=== PATIENT | male | born 1940 | race Asian ===

== ENCOUNTER 2024-06-28 10:54 | Emergency (ER) | payer MEDICARE, MEDICAID, SELFPAY ==
[2024-06-28] VITALS (11 sets, daily range): BP systolic 115–190; BP diastolic 63–91; PULSE 65–88; RESP 16–20; TEMP 36.7–36.9; O2SAT 98–100; BMI 35.6
--- NOTE | 2024-06-28 11:48 | PD.EDRME ---
Rapid Medical Screening Exam RME Arrival date/time: 06/28/24 10:54 Chief Complaint: Extremity Problem,Nontraumatic RME Narrative: 84-year-old patient with history of chronic kidney disease and currently on dialysis Wednesdays and Saturdays presents emergency department brought in by relative with complaint of weakness. Relative states the patient is also unable to stand or ambulate that is new for patient. Patient is afebrile.
--- NOTE | 2024-06-28 11:50 | XR_ITS ---
Examination: AP lateral chest 2 views Technique: Upright AP lateral chest 2 views Exam date and time: June 28, 2024 12:38 PM Comparison December 09, 2022 Indications: Fever shortness of breath beginning 3 days ago. Findings: Mild heart failure Mild enlargement cardiac contour with prominent vascular congestion Early pneumonia at the right lung base Prominent osteopenia Impression: Mild heart failure Early pneumonia right lung base
[2024-06-28 12:27] LABS: Basophils # (Auto) 0.1 Thou/mm3 (0.0-0.2); Basophils % (Auto) 1 % (0-2.5); Eosinophils # (Auto) 0.1 Thou/mm3 (0.0-0.5); Eosinophils % (Auto) 1 % (0-10); Hematocrit 26.2 % (41.0-53.0); Immature Granulocytes % (Auto) 1 % (0-0); Immature Granulocytes Auto 0.08 Thou/mm3 (0.00-0.00); Lymphocytes # (Auto) 1.2 Thou/mm3 (1.0-4.8); Lymphocytes % (Auto) 11 % (10-50); Mean Corpuscular HGB Conc 33.6 g/dl (31.0-37.0); Mean Corpuscular Hemoglobin 29.5 pg (25.0-35.0); Mean Corpuscular Volume 88 fL (80-100); Monocytes # (Auto) 0.9 Thou/mm3 (0.0-0.8); Monocytes % (Auto) 9 % (0-12); Neutrophils # (Auto) 8.2 Thou/mm3 (1.8-7.7); Neutrophils % (Auto) 78 % (37-80); Nucleated Red Blood Cell % 0 /100 WBC (0); Platelet Count 135 Thou/mm3 (140-440); RDW Standard Deviation 58.2 fL (35.1-43.9); Red Blood Count 2.98 Miln/mm3 (4.50-5.90); White Blood Count 10.6 Thou/mm3 (3.8-10.6)
[2024-06-28 12:30] LABS: Hemoglobin 8.8 g/dL (13.5-16.0)
[2024-06-28 12:34] LABS: Lactate (Lactic Acid) 1.5 mMol/L (0.4-2.0)
[2024-06-28 12:46] LABS: Alanine Aminotransferase 25 U/L (10-49); Albumin, Serum 4.2 gm/dL (3.4-4.8); Albumin/Globulin Ratio 1.6 (1.2-2.2); Alkaline Phosphatase 81 U/L (46-116); Anion Gap 9 (7-16); Aspartate Amino Transferase 28 U/L (0-34); BUN/Creatinine Ratio 8 Ratio (12-20); Bilirubin,Total 1.3 mg/dL (0.3-1.2); Blood Urea Nitrogen 43 mg/dL (9-23); Calcium 8.7 mg/dL (8.3-10.6); Calcium (Corrected) 8.7 mg/dL (8.5-10.1); Carbon Dioxide 27.3 mMol/L (20.0-31.0); Chloride 96 mMol/L (98-107); Creatinine (Component) 5.3 mg/dL (0.6-1.3); Estimated Creatinine Clearance 10.2 mL/min (>60); Globulin 2.7 gm/dL (2.3-3.5); Glucose 105 mg/dL (74-106); Lipase 47 U/L (12-53); Osmolality,Calculated 275 (275-295); Sodium 132 mMol/L (136-145); Total Protein 6.9 gm/dL (5.7-8.2); eGFR 10 See Note
--- NOTE | 2024-06-28 15:54 | XR_ITS ---
Examination: CT brain head without contrast. 2-D sagittal coronal reconstructions Date and time of exam:June 28, 2024 1616 hrs. Indications: Patient fell today with injury to the head, head pain CTDI: vol (mGy):50 DLP: (mGycm):1042 Technique: Multiple CT axial sections of the brain have been obtained, 5 mm slice thickness. Contrast has not been administered. 2-D sagittal, coronal reconstructions have been obtained Low dose protocols were performed. One or more of the following dose reduction techniques were used; automated exposure control, adjustment of the mA and/or KV according to patient size, use of iterative reconstruction technique. Findings: The images are degraded by patient motion Acute subdural hematoma peripheral to the left frontal lobe measuring 10 mm in thickness Acute subdural hematoma peripheral to the right frontal lobe measuring 6 mm in thickness Hemorrhagic contusions in both frontal lobes, the largest in the left frontal lobe, the hematoma measuring 18 mm, adjacent hematoma 11 mm Right frontal hematoma 16 mm Subarachnoid hemorrhage left frontal sulci Right parietal convexity hematoma, axial image 7, measuring 12 mm Possible minimal subdural hemorrhage along the cerebral falx and the cerebellar right and left tentorium measuring up to 1.5 mm No midline shift of the ventricles Linear bilateral parietal skull fractures, larger on the left side, without depression of fracture fragments The right parietal fracture extends posteriorly, image 28 Impression: Acute subdural hematoma peripheral to the left frontal lobe measuring up to 10 mm in thickness Acute subdural hematoma peripheral to the right frontal lobe measuring up to 6 mm in thickness Hemorrhagic contusions in both frontal lobes, including on the left frontal lobe hematoma 18 mm, adjacent hematoma 11 mm, hematoma right frontal lobe measuring 16 mm Subarachnoid hemorrhage left frontal sulci Right parietal convexity hematoma, 12 mm Possible minimal subdural hemorrhage involving the right and left cerebellar tentorium and the cerebral falx Bilateral parietal skull fractures as above No midline shift of the ventricles
--- NOTE | 2024-06-28 15:54 | XR_ITS ---
Examination: CT cervical spine without contrast 2-D sagittal reconstructions 2-D coronal reconstructions 3-D reconstructions. Exam date and time:June 28, 2024 1616 hrs. Indications: Patient fell today with injury to the neck, neck pain CTDI:vol (mGy) 7.72 DLP: (mGycm) 147 Technique: Multiple 2 mm axial sections of the cervical spine have been obtained. The coronal and sagittal reconstructions have been obtained. 3-D reconstructions have been obtained. Low dose protocols were performed. One or more of the following dose reduction techniques were used; automated exposure control, adjustment of the mA and/or KV according to patient size, use of iterative reconstruction technique. Findings: Axial sections demonstrate intact base of the skull. C1 exhibit satisfactory relationship to the odontoid. No acute cervical vertebral body fracture seen. Alignment posterior spinous processes satisfactory. Minimal anterolisthesis C4 on C5 Advanced degenerative disc disease C5-C6 Impression: No acute cervical fracture. Right neck soft tissue contusion with partial visualization hematoma external to the sternocleidomastoid and hyoid bone, measuring up to 1.3 cm in thickness and at least 7 cm in AP dimension
--- NOTE | 2024-06-28 15:55 | EDNOTE_ITS ---
ED General RME/HPI General Chief complaint: Extremity Problem,Nontraumatic Stated complaint: Leg weakness left, fall, head injury, neg blood th Time Seen by Provider: 06/28/24 15:49 Arrival date/time: 06/28/24 10:54 CC: Generalized weakness resulting in a fall HPI generalized weakness for 3 to 4 days resulting in a fall 2020 4 hours ago. The patient denies LOC Santy has large bruising to the base of the right jaw. Patient is no awake and alert currently complaining of no pain. Family member state the patient is a full code. RME / HPI RME / HPI narrative: 84-year-old patient with history of chronic kidney disease and currently on dialysis Wednesdays and Saturdays presents emergency department brought in by relative with complaint of weakness. Relative states the patient is also unable to stand or ambulate that is new for patient. Patient is afebrile. Related Data Home Medications ?Medication ?Instructions ?Recorded ?Confirmed allopurinol 100 mg tablet 100 mg PO BID 03/07/19 07/22/21 carvedilol 6.25 mg tablet 6.25 mg PO BID 03/07/19 07/22/21 Allergies Allergy/AdvReac Type Severity Reaction Status Date / Time No Known Allergies Allergy Verified 12/09/22 17:18 Review of Systems Review of Systems Narrative Review of Systems: GEN: No fever, no chills, no weight loss EYES: No discharge, no visual changes, no pain HEENT: No ear pain, no congestion, no sore throat PULM: No shortness of breath, no cough, no congestion CV: No chest pain, no dyspnea on exertion, no palpitations GI: No nausea, no vomiting, no diarrhea, no pain, no constipation : No frequency, no urgency, no dysuria MUSC/SKEL: No joint pain, no back pain SKIN: No rash PSYCH: No hallucinations, no depression HEME/LYMPH: No easy bleeding or bruising tendencies NEURO: + weakness, no headache Past Medical History Past Medical History CARDIAC: Positive Cardiac Disorders and Hypertension; Negative Congestive Heart Failure RESPIRATORY: Negative Chronic Obstructive Pulmonary Disease (COPD) GENITOURINARY: Positive Renal Disease MUSCULOSKELETAL: Positive Arthritis and Gout ENDOCRINE: Negative Diabetes Mellitus Type 1 or Diabetes Mellitus Type 2 Social History SMOKING STATUS: Never smoker SUBSTANCE USE: does not use ED Exam Narrative Physical exam: [General: Obese appears not in any acute distress Head normocephalic HEENT: Face: Minor bruising just below the right mandible, appears in various stages of resolution. No other facial asymmetry. Mouth pink dry membranes uvula is midline swallow some metrical phonation is normal eyes: Pupils are PERRLA EOMs are intact. All other subsystems HEENT are within acceptable limits Neck is supple nontender Chest equal chest rise nontender to palpation Respiratory: Clear to auscultation no wheezes crackles or rubs CV: Rate rhythm is regular no murmurs rubs or clicks Abdomen is distended secondary to body habitus soft nontender no masses positive bowel sounds all 4 quadrants Back: No CVA tenderness no spinous process tenderness from cervical spine thoracic and lumbar spine Skin: Intact no petechiae rash induration ulceration or crepitus Extremities: Moving all extremity against resistance cap refill less than 2 seconds neurosensory intact Neuro: Awake alert oriented x2, person and place, Glascow coma 15 no focal deficits] Course Quality Measures none Orders Category Date Time Status Insert IV NOW Care 06/28/24 16:[address] cervical spine wo con Stat Exams 06/28/24 15:[address] head/brain wo con Stat Exams 06/28/24 15:54 Completed XR chest 2V Stat Exams 06/28/24 11:50 Completed CBC [CBC] Stat Lab 06/28/24 12:17 Completed CMP [Comprehensive Metabolic Panel] Stat Lab 06/28/24 12:17 Completed Lactic Acid [Lactate (Lactic Acid)] Stat Lab 06/28/24 12:17 Completed Lipase Stat Lab 06/28/24 12:17 Completed Tranexamic Acid 1,000 mg Ivpb [Tranexamic Acid Ivpb] Med 06/28/24 17:45 Discontinued 1,000 mg in 100 ml IV X1 hydrALAZINE INJ [Apresoline Inj] Med 06/28/24 16:29 Discontinued 20 mg IV X1 ONE levETIRAcetam INJ [Keppra Inj] Med 06/28/24 17:29 Discontinued 1,000 mg IVP X1 ONE Vital Signs Vital signs: Vital Signs Temperature 98.5 F 06/28/24 11:51 Pulse Rate 65 06/28/24 11:51 Respiratory Rate 18 06/28/24 11:51 Blood Pressure 115/71 06/28/24 11:51 Pulse Oximetry (%) 99 06/28/24 11:51 Oxygen Delivery Method Room Air 06/28/24 11:51 [facility] Patient data External records reviewed:: [facility] previous records Clinical information provided by:: patient and family Social determinants that could affect healthcare access:: none Patient has the following chronic illnesses:: ESRD dialysis How is presenting disease/condition affected by chronic disease/condition?: u neffected by Evaluation data The following diagnostics were reviewed and interpreted by me:: lab results and radiology exam(s) Lab and/or radiology exams considered but not ordered:: CBC shows a WBCs of 10.6 H&H of 8.8 and 26.2 respectively with platelets of 135 CMP shows a sodium 132 potassium of 5.0 chloride of 96 CO2 of 27.3 BUN of 43 creatinine 5.3 and glucose of 105, no transaminitis, T. bili 1.3. Acute subdural hematoma peripheral to the left frontal lobe measuring 10 mm also with subdural to the right frontal lobe measuring 6 mm hemorrhagic contusion of both frontal lobes also subarachnoid hemorrhage in the left focal cell, right parietal convexity hematoma 12 mm minimal subdural hemorrhage involving the right and left cerebellar tentorium and the falx cerebral there is also bilateral parietal skull fractures. Interpretation Summary: Patient's case discussed with the family patient needs to be transferred to neurosurgery. Patient's condition discussed with Dr. Streeter neurosurgeon, who agrees to accept the patient at [facility]. Medications Medications considered but not ordered:: None Medication administrations:: Medication Administration History Discontinued Medications Hydralazine HCl (Hydralazine Inj 20 Mg/Ml Vial) 20 mg IV X1 ONE Stop: 06/28/24 16:30 Last Admin: 06/28/24 16:44 Dose: 20 mg Documented By: JOSEPH Tranexamic Acid (Tranexamic Acid Ivpb) 1,000 mg in 100 mls @ 400 mls/hr IV X1 ONE Stop: 06/28/24 17:59 Last Infusion: 06/28/24 18:14 Dose: Infused Documented By: Admin: 06/28/24 17:45 Dose: 400 mls/hr Documented By: JOSEPH Levetiracetam (Levetiracetam Inj 100 Mg/Ml Vial 5ml) 1,000 mg IVP X1 ONE Stop: 06/28/24 17:30 Last Admin: 06/28/24 17:39 Dose: 1,000 mg Documented By: DB None Consultations Consultation(s) initiated? (list below): No Diagnosis Differential Diagnosis ED Complaint MDM: Parietal fracture subdural hematoma and adrenals intercerebral hemorrhage Most likely diagnosis given after review of the tests above:: Subdural hematomas lobe contusion subarachnoid hemorrhage parietal skull fracture Admission Indicated Admission indicated?: indicated Explain why admission is indicated or not indicated:: Transfer Admission Request Was there a request for admission?: No Disposition Plan Disposition Plan: Transfer Medical Decision Making Differential Diagnosis Differential Diagnosis: Parietal fracture subdural hematoma and adrenals intercerebral hemorrhage Lab Data 06/28/24 12:17 06/28/24 12:17 Labs: Lab Results 06/28/24 Range/Units 12:17 WBC 10.6 (3.8-10.6) Thou/mm3 RBC 2.98 L (4.50-5.90) Miln/mm3 Hgb 8.8 L (13.5-16.0) g/dL Hct 26.2 L (41.0-53.0) % MCV 88 (80-100) fL MCH 29.5 (25.0-35.0) pg MCHC 33.6 (31.0-37.0) g/dl RDW Std Deviation 58.2 H (35.1-43.9) fL Plt Count 135 L (140-440) Thou/mm3 Neut % (Auto) 78 (37-80) % Lymph % (Auto) 11 (10-50) % [place] % (Auto) 9 (0-12) % Eos % (Auto) 1 (0-10) % Baso % (Auto) 1 (0-2.5) % Neut # (Auto) 8.2 H (1.8-7.7) Thou/mm3 Lymph # (Auto) 1.2 (1.0-4.8) Thou/mm3 [place] # (Auto) 0.9 H (0.0-0.8) Thou/mm3 Eos # (Auto) 0.1 (0.0-0.5) Thou/mm3 Baso # (Auto) 0.1 (0.0-0.2) Thou/mm3 Immature Gran # (Auto) 0.08 H (0.00-0.00) Thou/mm3 Absolute Nucleated RBC 0.00 (0.00-0.00) Thou/mm3 Immature Gran % 1 H (0-0) % Nucleated RBC % 0 (0) /100 WBC Sodium 132 L (136-145) mMol/L Potassium 5.0 (3.4-5.1) mMol/L Chloride 96 L (98-107) mMol/L Carbon Dioxide 27.3 (20.0-31.0) mMol/L Anion Gap 9 (7-16) BUN 43 H (9-23) mg/dL Creatinine 5.3 H* (0.6-1.3) mg/dL Estim Creat Clear Calc 10.2 L (>60) mL/min eGFR 10 L* (60 - ) See Note BUN/Creatinine Ratio 8 L (12-20) Ratio Glucose 105 (74-106) mg/dL Calculated Osmolality 275 (275-295) Lactic Acid 1.5 (0.4-2.0) mMol/L Calcium 8.7 (8.3-10.6) mg/dL Corrected Calcium 8.7 (8.5-10.1) mg/dL Total Bilirubin 1.3 H (0.3-1.2) mg/dL AST 28 (0-34) U/L ALT 25 (10-49) U/L Alkaline Phosphatase 81 (46-116) U/L Total Protein 6.9 (5.7-8.2) gm/dL Albumin 4.2 (3.4-4.8) gm/dL Globulin 2.7 (2.3-3.5) gm/dL Albumin/Globulin Ratio 1.6 (1.2-2.2) Lipase 47 (12-53) U/L Discharge Plan Plan Patient Disposition: [facility] Facility Pt Being Transferred to: [facility] Needed for Transfer: Neurosurgery Disposition Comment: Guarded Prescriptions/Referrals Prescriptions/Med Rec: No Action carvedilol 6.25 mg Tablet 6.25 mg PO BID allopurinol 100 mg Tablet 100 mg PO BID Referrals: Jason Vasquez MD [Primary Care Provider] - In 1 week Problem List Clinical Impression: Acute subdural hematoma, Subarachnoid hemorrhage, Fracture of parietal bone of skull, Ground-level fall Patient/Caregiver Discharge Instructions Print Language: Syriac Stand Alone Forms: Sujatha Award Info., Patient Portal Info Letter PA/METAL SOLDERER Supervising Physician PA/METAL SOLDERER Supervising Physician: Samuel Zavala ENP
[2024-06-28] MEDS: hydrALAZINE INJ 20 MG/ML VIAL IV (16:44)
--- NOTE | 2024-06-28 17:01 | PC.NURSE ---
[facility] CONTACTED, NO ANSWER MESSAGE LEFT AT THIS TIME. INFO FAXED OVER PRIOR TO CALL. WILL CALL BACK
--- NOTE | 2024-06-28 17:21 | PC.NURSE ---
YANETH FROM [facility] RETURNED CALL. SPEAKING TO CONI AT THIS TIME.
--- NOTE | 2024-06-28 17:33 | PC.NURSE ---
YANETH FROM [facility] RETURNED CALL WITH POSITIVE ACCEPTANCE BY DR BLACK. ER TO ER. NURSE TO NURSE REPORT [phone]
[2024-06-28] MEDS: levETIRAcetam INJ 100 MG/ML VIAL 5ML 1000 MG IVP (17:39)
[2024-06-28] MEDS: TRANEXAMIC ACID 1,000 MG IVPB 1,000 MG/100 ML BAG 400 MG IV (17:45)
== END 2024-06-28 18:29 | disposition short-term general hospital (02) ==
PROVIDERS: Physician Assistant; Emergency Provider Emergency Medicine; PCP Family Medicine
DX: S06.5X0A Traumatic subdural hemorrhage without loss of consciousness, initial encounter (principal); S06.6X0A Traumatic subarachnoid hemorrhage without loss of consciousness, initial encounter; S02.0XXA Fracture of vault of skull, initial encounter for closed fracture; S00.83XA Contusion of other part of head, initial encounter; W18.30XA Fall on same level, unspecified, initial encounter; Z75.1 Person awaiting admission to adequate facility elsewhere
CPT/HCPCS: 36415; 70450; 71046; 72125; 80053; 81001; 83605; 83690; 85025; 96365; 99284; J0360; J1953; J3490

== ENCOUNTER → 2024-07-30 | Outpatient (CLI) | payer MEDICARE, MEDICAID, SELFPAY ==
--- NOTE | 2024-07-30 16:48 | XR_ITS ---
Examination: CT brain head without contrast. 2-D sagittal coronal reconstructions Date and time of exam:July 30, 2024 1709 hrs. Indications: Onset headache weakness beginning June 28, 2024, CT brain scan June 28, 2024 acute subdural hematoma peripheral to the left frontal lobe and right frontal lobe, hemorrhage contusions in both frontal lobes subarachnoid hemorrhage left frontal sulci right frontal convexity hematoma CTDI: vol (mGy):47.3 DLP: (mGycm):963 Technique: Multiple CT axial sections of the brain have been obtained, 5 mm slice thickness. Contrast has not been administered. 2-D sagittal, coronal reconstructions have been obtained Low dose protocols were performed. One or more of the following dose reduction techniques were used; automated exposure control, adjustment of the mA and/or KV according to patient size, use of iterative reconstruction technique. Findings: Bilateral parietal skull fractures Subdural and parenchymal hemorrhages have resolved, minimal residual hemorrhage in the right frontal lobe image 27 Encephalomalacia in the frontal lobes No midline shift Impression: Marked improvement Minimal hemorrhage 2 mm in the right frontal lobe
== END | disposition home or self-care (01) ==
PROVIDERS: PCP Hospitalist; Referring Provider Hospitalist; Visit Provider Hospitalist
DX: S06.5X0A Traumatic subdural hemorrhage without loss of consciousness, initial encounter (principal); X58.XXXA Exposure to other specified factors, initial encounter
CPT/HCPCS: 70450